=== PATIENT | male | born 1965 | race Caucasian/White ===

== ENCOUNTER 2018-09-18 17:59 | Emergency (ER) | payer BC, OTHER ==
--- NOTE | 2018-09-18 18:39 | EDPHY ---
H & P Time Seen by Provider: 09/18/18 18:28 HPI/ROS: Chief complaint. Chest pain HPI. Patient is a 53-year-old male presents with left-sided chest pain for 3 and 0.5 hr. He describes as burning and sharp. No radiation. No unusual activity. No shortness of breath. No fever cough. No recent travel or leg symptoms. Pain is worse with deep breath but not with walking or exertion. No similar symptoms previously. No abdominal pain. ROS 10 systems were reviewed and negative with the exception of the elements mentioned in the history of present illness Past Medical/Surgical History: High cholesterol without medication Family history mom had an CT at age 88 however otherwise no early heart disease. No heart disease in patient's siblings Social History: , nonsmoker, no alcohol Smoking Status: Never smoked Physical Exam: General Appearance: Alert pleasant well-developed male mild distress vital signs are stable Eyes: Pupils equal and round no pallor or injection. ENT, Mouth: Mucous membranes are moist. Respiratory: There are no retractions, lungs are clear to auscultation. Cardiovascular: Regular rate and rhythm. Gastrointestinal: Abdomen is soft and nontender, no masses, bowel sounds normal. Neurological: Awake and alert, sensory and motor exams grossly normal. Skin: Warm and dry, no rashes. Musculoskeletal: Neck is supple nontender. Patient has discomfort with palpation of the left anterior chest just under the left breast where he shows me he has discomfort. It is worse with palpation reproduces the patient's discomfort. Extremities symmetrical, full range of motion. Psychiatric: Patient is oriented X 3, there is no agitation. Constitutional: Initial Vital Signs Temperature (C) 36.6 C 09/18/18 18:06 Heart Rate 73 09/18/18 18:06 Respiratory Rate 16 09/18/18 18:06 Blood Pressure 162/93 H 09/18/18 18:06 O2 Sat (%) 97 09/18/18 18:06 O2 Delivery Mode Room Air Allergies/Adverse Reactions: No Known Allergies Allergy (Unverified 09/18/18 18:06) Home Medications: Medication Instructions Recorded NK [No Known Home Meds] 09/18/18 Medical Decision Making - Diagnostics EKG Interpretation: EKG interpreted by me shows normal sinus rhythm normal interval. Left axis deviation. QRS normal. No significant ST elevation or depression. T-wave flattening lateral leads. No arrhythmia. Rate 73 Imaging Results: Imaging Impressions Chest X-Ray 09/18/18 18:52 Impression: Normal chest x-ray. One-view chest x-ray interpreted by me is normal Procedures: IV normal saline, monitor ED Course/Re-evaluation: Re-evaluation at 7:40 p.m. Patient is stable. He and I discussed laboratory imaging EKG findings we discussed treatment plan including criteria for return and recommendation for follow-up and further evaluation. He expresses understanding and agreement Repeat troponin is normal At 8:30 p.m. Patient is re-evaluated and is feeling better. He and I discussed troponin EKG and laboratory evaluation. We discussed treatment plan. He is offered admission but feels comfortable being followed as an outpatient. I emphasized the importance of follow-up and likely need for cholesterol medication. He is encouraged to return at any point should he have worsening chest discomfort or trouble breathing. He is encouraged to call Cardiology tomorrow morning for further evaluation Differential Diagnosis: I considered acute coronary syndrome, pulmonary embolus, pneumonia. Patient's pain is reproducible by palpation of the area of the left anterior chest. It is worse with deep breathing which I believe is likely due to expansion of the chest wall with deep breathing. It is not worse with exertion. He has no family history of premature coronary artery disease. He does have elevated cholesterol as his risk factor. He has had 2 normal troponins. He has a nonacute appearing EKG. He has reproducible discomfort. - Data Points Laboratory Results: Laboratory Results 09/18/18 18:27 09/18/18 18:27 09/18/18 09/18/18 09/18/18 20:15 18:31 18:27 WBC RBC Hgb Hct MCV MCH MCHC RDW Plt Count MPV Neut % (Auto) Lymph % (Auto) [place] % (Auto) Eos % (Auto) Baso % (Auto) Nucleat RBC Rel Count Absolute Neuts (auto) Absolute Lymphs (auto) Absolute Monos (auto) Absolute Eos (auto) Absolute Basos (auto) Absolute Nucleated RBC Immature Gran % Immature Gran # D-Dimer < 0.27 ug/mLFEU ug/mLFEU (0.00-0.50) Sodium Potassium Chloride Carbon Dioxide Anion Gap BUN Creatinine Estimated GFR Glucose Calcium POC Troponin I 0.01 ng/mL ng/mL 0.01 ng/mL ng/mL (0.00-0.08) (0.00-0.08) 09/18/18 09/18/18 18:27 18:27 WBC 6.58 10^3/uL 10^3/uL (3.80-9.50) RBC 5.08 10^6/uL 10^6/uL (4.40-6.38) Hgb 16.3 g/dL g/dL (13.7-17.5) Hct 47.9 % % (40.0-51.0) MCV 94.3 fL fL (81.5-99.8) MCH 32.1 pg pg (27.9-34.1) MCHC 34.0 g/dL g/dL (32.4-36.7) RDW 12.8 % % (11.5-15.2) Plt Count 328 10^3/uL 10^3/uL (150-400) MPV 9.6 fL fL (8.7-11.7) Neut % (Auto) 60.7 % % (39.3-74.2) Lymph % (Auto) 28.9 % % (15.0-45.0) [place] % (Auto) 8.1 % % (4.5-13.0) Eos % (Auto) 1.2 % % (0.6-7.6) Baso % (Auto) 0.8 % % (0.3-1.7) Nucleat RBC Rel Count 0.0 % % (0.0-0.2) Absolute Neuts (auto) 4.00 10^3/uL 10^3/uL (1.70-6.50) Absolute Lymphs (auto) 1.90 10^3/uL 10^3/uL (1.00-3.00) Absolute Monos (auto) 0.53 10^3/uL 10^3/uL (0.30-0.80) Absolute Eos (auto) 0.08 10^3/uL 10^3/uL (0.03-0.40) Absolute Basos (auto) 0.05 10^3/uL 10^3/uL (0.02-0.10) Absolute Nucleated RBC 0.00 10^3/uL 10^3/uL (0-0.01) Immature Gran % 0.3 % % (0.0-1.1) Immature Gran # 0.02 10^3/uL 10^3/uL (0.00-0.10) D-Dimer Sodium 138 mEq/L mEq/L (135-145) Potassium 4.0 mEq/L mEq/L (3.5-5.2) Chloride 104 mEq/L mEq/L (97-110) Carbon Dioxide 26 mEq/l mEq/l (22-31) Anion Gap 8 mEq/L mEq/L (6-14) BUN 17 mg/dL mg/dL (7-23) Creatinine 0.9 mg/dL mg/dL (0.7-1.3) Estimated GFR > 60 Glucose 85 mg/dL mg/dL (70-100) Calcium 9.8 mg/dL mg/dL (8.5-10.4) POC Troponin I Point of Care Test Results: Chemistry 09/18/18 09/18/18 20:15 18:31 POC Troponin I 0.01 ng/mL ng/mL 0.01 ng/mL ng/mL (0.00-0.08) (0.00-0.08) Departure - Departure Disposition: Home, Routine, Self-Care Clinical Impression: Chest pain Qualifiers: Chest pain type: unspecified Qualified Code(s): R07.9 - Chest pain, unspecified Condition: Good Instructions: Chest Pain (ED) Additional Instructions: Easy activity the next 2-3 days. Call Cardiology in the morning to arrange follow-up evaluation Return for worsening chest discomfort or trouble breathing. May use ibuprofen for chest discomfort Referrals: NONE *PRIMARY CARE P,. [Primary Care Provider] - As per Instructions Dk Acuña MD [Medical Doctor] - 1-2 days without fail
[2018-09-18 19:00] LABS: PLATELET COUNT 328 10^3/uL (150-400)
[2018-09-18 21:00] VITALS: BP 144/95
--- NOTE | 2018-09-18 21:12 | CPEKG ---
Test Reason : OPEN Blood Pressure : / mmHG Vent. Rate : 073 BPM Atrial Rate : 072 BPM P-R Int : 191 ms QRS Dur : 089 ms QT Int : 398 ms P-R-T Axes : 044 000 043 degrees QTc Int : 439 ms Sinus rhythm Probable left atrial enlargement Nonspecific T abnormalities, lateral leads Confirmed by Raul Anderson ([id number]) on 09/18/2018 9:12:02 PM Referred By: Confirmed By:Raul Anderson
== END 2018-09-18 20:59 | disposition home or self-care (01) ==
DX: R07.9 Chest pain, unspecified (principal); Z82.49 Family history of ischemic heart disease and other diseases of the circulatory system
CPT/HCPCS: 82607-90; 84484-PO

== ENCOUNTER 2018-10-24 07:46 | Day surgery (SDC) | payer BC ==
[2018-10-24] MEDS ORDERED: NS 1,000 ML IV ONE (07:52)
[2018-10-24] MEDS ORDERED: DIAZEPAM 5 MG TAB PO ONE (07:52)
[2018-10-24] MEDS ORDERED: diphenhydrAMINE 25 MG CAP PO ONE (07:52)
[2018-10-24] MEDS ORDERED: FAMOTIDINE 20 MG TAB PO ONE (07:52)
[2018-10-24] MEDS ORDERED: ASPIRIN EC 325 MG TAB PO ONE (07:52)
[2018-10-24 08:21] LABS: PLATELET COUNT 330 10^3/uL (150-400)
[2018-10-24 08:33] LABS: INR 0.93 (0.83-1.16); PROTIME(PATIENT) 12.7 SEC (12.0-15.0)
[2018-10-24] MEDS ORDERED: LIDOCAINE 1% 300 MG/30 ML SDV ONE (08:44)
[2018-10-24] MEDS ORDERED: MIDAZOLAM 2 MG/2 ML VIAL ONE (08:45)
[2018-10-24] MEDS ORDERED: fentaNYL 100 MCG/2 ML INJ ONE (08:45)
[2018-10-24] MEDS ORDERED: IOPAMIDOL (ISOVUE-370) 150 ML BTL IV ONE (08:46)
[2018-10-24] MEDS ORDERED: VERAPAMIL 5 MG/2 ML VIAL ONE (08:47)
[2018-10-24] MEDS ORDERED: HEPARIN 10,000 UNIT/10 ML MDV (1,000 UNIT/ML) ONE (08:47)
--- NOTE | 2018-10-24 08:50 | PDPROPOC ---
Sedation Plan of Care Sedation Plan of Care: vital signs stable, mental status noted, patient educated of risks, benefits, alternatives, patient can tolerate sedation ASA Classification: ASA 3 Planned drugs: fentanyl, midazolam Mallampati Score: Class 3 Mallampati Reference Image: Patient passed 3-3-2 rule?: Yes
--- NOTE | 2018-10-24 08:50 | PDHPUP ---
History & Physical Update H&P update statement: This history and physical update is based on an assessment of the patient which was completed after admission or registration (within 24 hours), but prior to the surgery/procedure. H&P update: H&P reviewed & patient examined (high calcium score and angina at rest CCS Class IV, intermediate risk stress), no change in patient's condition since H&P completed
--- NOTE | 2018-10-24 09:23 | PDDXCAT ---
Diagnostic Cath Note - . Date: 10/24/18 Inset Cutter: Destiny Indication: CCC Class III and IV angina on medical treatment, other ( intermediate risk stress test) - Procedure Access: left wrist Procedure: left heart catheterization, coronary angiography, left ventriculogram - Materials Left Heart Cath size: 5F Left Heart Cath materials: JL3.5, JR4.0 - Findings-Left Heart Catheterization LM: The left main is 6mm in size and trifurcates into a LAD, Ramus, and Circumflex systems. There is no evidence of flow-limiting obstruction. There is BETTYE III flow. LAD: The left anterior descending is 3mm in size proximally. There is calcifications that are consistent with atherosclerosis. Maximal luminal stenosis is 20%. LCX: The circumflex is a co-dominant vessel. There is BETTYE III flow. RCA: The right coronary artery is a co-dominant vessel. There is no evidence of flow-limiting disease. There is BETTYE III flow throughout. Ramus: The ramus is 2mm in size and small. There is no evidence of flow- limiting disease with BETTYE III flow. EDP: 17mmHg LVEF: 65% Wall motion: On the LV gram there is normal LV systolic function. The EF is 65% . There are no resting segmental wall motion abnormalities. The visualized portion of the thoracic aortic valve reveals three sinuses of valsalva most consistent with a trileaflet valve. There is 2+ mitral regurgitation. There is no gradient on pullback across the aortic valve. There is no evidence of amanda dissection or aneurysm formation of the thoracic aorta. - Findings-Right Heart Catheterization AO: 112/64/86 Complications: NONE Estimated blood loss: <50ml Closure method: TR Band Assessment: The patient has coronary artery disease with co-dominant right coronary and circumflex systems. The patient has 20% luminal stenosis in the LAD. There is 2+ mitral regurgitation (likely related to catheter placement pressurized injection and ventricular tachycardia during ejection) and normal ejection fraction of 65%. Plan: The patient has non-flow limiting coronary disease that should be treated medically to achieve a non-HDL Cholesterol of less than 100 mg/dL and anti platelet therapy with ASA is also recommended specifically a dose of 162 mg. His activity will be restricted by standard wrist precautions for 7-10days. Intervention: NONE
[2018-10-24] MEDS ORDERED: OXYCODONE/APAP 5/325 TAB PO PRN (09:52)
[2018-10-24] MEDS ORDERED: HYDROCODONE/APAP 5/325 TAB PO PRN (09:52)
[2018-10-24] MEDS ORDERED: ATROPINE SULFATE 1 MG/10 ML SYR IVP PRN (09:52)
[2018-10-24] MEDS ORDERED: ONDANSETRON 4 MG/2 ML VIAL IVP PRN (09:52)
[2018-10-24] MEDS ORDERED: NITROGLYCERIN 0.4 MG BTL SL PRN (09:52)
--- NOTE | 2018-10-24 09:55 | CPEKG ---
Test Reason : OPEN Blood Pressure : / mmHG Vent. Rate : 060 BPM Atrial Rate : 061 BPM P-R Int : 195 ms QRS Dur : 088 ms QT Int : 413 ms P-R-T Axes : 047 002 022 degrees QTc Int : 413 ms Sinus rhythm Confirmed by Saud Sterling ([id number]) on 10/24/2018 9:54:54 AM Referred By: Confirmed By:Saud Sterling
== END 2018-10-24 14:00 | disposition home or self-care (01) ==
LOC: FCATH 07:46
PROVIDERS: ATTEND Internal Medicine Cardiovascular Disease
DX: R07.9 Chest pain, unspecified (principal); I25.10 Atherosclerotic heart disease of native coronary artery without angina pectoris; E78.00 Pure hypercholesterolemia, unspecified; I49.3 Ventricular premature depolarization; I10 Essential (primary) hypertension
CPT/HCPCS: J1644; J2250; J3010; Q9967

== ENCOUNTER → 2019-01-29 | Outpatient (CLI) | payer BC | LOC: BMCIMAGING 19:13 | PROVIDERS: ATTEND Family Medicine | DX: M25.571 Pain in right ankle and joints of right foot (principal); M77.9 Enthesopathy, unspecified ==